=== PATIENT | male | born 1960 | race Caucasian/White ===

== ENCOUNTER 2016-12-20 22:48 | Emergency (ER) | payer OTHER ==
[2016-12-20 22:56] VITALS: BMI 27.6
[2016-12-20] MEDS ORDERED: XYLOCAINE 2 % (PLAIN) ONE (23:57)
[2016-12-20] MEDS ORDERED: HYDROGEN PEROXIDE 3% ONE (23:59)
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
[2016-12-21] MEDS ORDERED: ANCEF VIAL 1 GM IM ONE (01:15)
[2016-12-21] MEDS ORDERED: ANCEF VIAL 1 GM ONE (01:19)
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
[2016-12-21] MEDS ORDERED: NEOSPORIN OINT ONE (03:28)
[2016-12-21 04:33] VITALS: BP 137/90
== END 2016-12-21 03:34 | disposition home or self-care (01) ==
LOC: ER 22:48
PROC: 0WQ20ZZ Repair Face, Open Approach (ICD-10-PCS; principal; 2016-12-20)
DX: S02.32XA Fracture of orbital floor, left side, initial encounter for closed fracture (principal); S01.01XA Laceration without foreign body of scalp, initial encounter; H11.32 Conjunctival hemorrhage, left eye; S00.83XA Contusion of other part of head, initial encounter; Y04.0XXA Assault by unarmed brawl or fight, initial encounter; Y92.9 Unspecified place or not applicable
CPT/HCPCS: 12054; 70450; 70486; 96372; 99283; J0690; J2001

== ENCOUNTER 2017-05-09 19:53 | Emergency (ER) | payer BC, OTHER ==
[2017-05-09 20:12] VITALS: BP 120/76; BMI 29.0
[2017-05-09] MEDS ORDERED: DUONEB 0.5 MG/3 MG NEB ONE ×2 (20:34→23:14)
[2017-05-09] MEDS ORDERED: SOLU-Medrol 125 MG VIAL IVP ONE (20:34)
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
[2017-05-09] MEDS ORDERED: SOLU-Medrol 125 MG VIAL ONE (20:42)
[2017-05-09] MEDS ORDERED: DUONEB 0.5 MG/3 MG ONE ×2 (20:46→23:02)
[2017-05-09 20:55] LABS: BASOPHILS % (AUTO) 0.2 % (0.2-1.0); EOSINOPHILS % (AUTO) 0.5 % (0.9-2.9); HEMATOCRIT 42.3 % (42.0-54.0); HEMOGLOBIN 14.5 g/dL (13.5-18.0); LYMPHOCYTES % (AUTO) 11.4 % (21.0-51.0); MEAN CORPUSCULAR HEMOGLOBIN 30.7 pg (27.0-34.0); MEAN CORPUSCULAR HGB CONC 34.3 g/dL (33.0-35.0); MEAN CORPUSCULAR VOLUME 89.7 fL (80.0-100.0); MEAN PLATELET VOLUME 6.5 fL (7.4-11.0); MONOCYTES # (AUTO) 0.7 x10^3/uL (0.3-0.8); MONOCYTES % (AUTO) 8.7 % (0.0-13.0); NEUTROPHILS # (AUTO) 6.8 x10^3/uL (2.2-4.8); NEUTROPHILS % (AUTO) 79.2 % (42.0-75.0); PLATELET COUNT 323 X10^3/uL (150.0-450.0); RED BLOOD COUNT 4.72 X10^6/uL (4.7-6.0); RED CELL DISTRIBUTION WIDTH 13.9 % (11.6-16.5); WHITE BLOOD COUNT 8.5 X10^3/uL (3.6-10.0)
[2017-05-09] MEDS ORDERED: NS 1000 ML 1,000 ML IV SCH (21:00)
[2017-05-09 21:12] LABS: BLOOD UREA NITROGEN 9 mg/dL (7-18); CALCIUM 7.6 mg/dL (8.5-10.1); CHLORIDE 100 mmol/L (98-107); COR NA(FOR HYPERGLY) 136 mmol/L (136-145); CREATININE 1.14 mg/dL (0.70-1.30); SODIUM 135 mmol/L (136-145); TROPONIN I < 0.02 ng/mL (0-1.5); eGFR BLACK RACES > 60 (>60); eGFR NON BLACK RACES > 60 (>60)
[2017-05-09 21:16] LABS: ALANINE AMINOTRANSFERASE 24 Units/L (12-78); ALBUMIN 3.5 g/dL (3.4-5.0); ALKALINE PHOSPHATASE 97 Units/L (46-116); ASPARTATE AMINO TRANSFERASE 16 Units/L (15-37); CKMB % 1.5 % (<4); CREATINE KINASE 105 Units/L (39-308); CREATINE KINASE MB 1.6 ng/mL (0-4.0); TOTAL PROTEIN 7.1 g/dL (6.4-8.2)
--- NOTE | 2017-05-09 21:50 | RAD ---
Chest, one view Indication: Chest pain, shortness of breath, cough Comparison: 10/03/2013 Findings: The left costophrenic angle is excluded from the exam. Heart size is normal. There is mild peribronchial thickening. No focal consolidation, significant effusion or pneumothorax is identified. There is no acute osseous abnormality. Impression: Peribronchial thickening, suggestive for bronchitis. Reported By:
[2017-05-09] MEDS ORDERED: ROCEPHIN 1 GM IV PREMIX 1 GM/50 ML IV.SOLN. IV ONE ×2 (22:00→23:02)
== END 2017-05-09 23:46 | disposition home or self-care (01) ==
LOC: ER 19:56
DX: J20.9 Acute bronchitis, unspecified (principal); R07.89 Other chest pain; J32.0 Chronic maxillary sinusitis; R73.9 Hyperglycemia, unspecified
CPT/HCPCS: 36415; 71045; 80053; 82550; 82553; 83735; 84484; 85025; 85378; 85610; 85730; 86677; 87040; 93005; 96365; 96374; 96375; 99283; A4222; J0696; J2930; J7620